=== PATIENT | male | born 1945 | race Caucasian/White ===

== ENCOUNTER 2018-08-30 17:36 | Inpatient (IN) | payer MEDICARE, OTHER ==
[~2018-08-30] VITALS: Ht 177.8 cm; Wt 119.3 kg
[~2018-08-30 17:36] MED LIST: ALLOPURINOL 10100 M1 PO; ALLOPURINOL 30300 M2 PO; BACTRIM 400-801 EACH PO; BENAZEPRIL-HCT1 EA10 PO; BENAZEPRIL-HCT1 EAC2 PO; CELEBREX 200 M200 M1 PO; CIPRO250 M1 PO; CIPRO500 MG PO; COLACE100 MG PO; D3-5050000 UNIT PO; ELIQUIS2.5 MG PO; FINASTERIDE5 MG PO; FLOMAX0.4 MG PO; GLUCOPHAGE500 MG PO; HYDROCODONE-AP1 EAC6 PO; LEVSIN-SL0.125 MG SUBLING; LEVSIN0.125 MG PO; LIPITOR10 MG PO; METFORMIN HCL500 MG PO; NEURONTIN 300300 M1 PO; NORCO 5-325 TA1 EACH PO; OXYCODONE HCL 55 MG PO; PERCOCET 5-3251 EACH PO; PERCOCET 7.5-31 EACH PO; PERCOCET PO; PIOGLITAZONE15 MG PO; POTASSIUM CITR PO; PROLIA60 MG/1 ML PO; SENOKOT-S1 TA1 PO; TESTOSTERO200 MG/1 M IM; UROCIT-K10 ME1 PO; ZOFRAN 4 MG ORAL4 M1 DIS; ZOFRAN ODT4 MG PO
[2018-08-30 17:59] VITALS: BP 143/72
[2018-08-30] MEDS ORDERED: ZALEPLON 10 MG10 M1 PO (18:06)
[2018-08-30 18:28] LABS: ABSOLUTE BASOPHILS 0.1 thou/uL (0.0-0.2); ABSOLUTE EOSINOPHILS 0.1 thou/uL (0.0-0.7); ABSOLUTE LYMPHOCYTES 1.1 thou/uL (0.8-5.3); ABSOLUTE MONOCYTES 0.5 thou/uL (0.0-1.2); ABSOLUTE NEUTROPHILS 3.9 thou/uL (1.6-8.1); BASOPHILS 1.1 %; HEMATOCRIT 41.6 % (42.0-52.0); HEMOGLOBIN 13.8 gm/dL (14.0-18.0); LYMPHOCYTES 20.1 %; MCH 26.5 pg (26.0-34.0); MCHC 33.1 g/dL (28.0-37.0); MONOCYTES 8.3 %; NUCLEATED RBCS 0 /100WBC; PLATELET COUNT* 202 thou/uL (150-400); POLYS 69.5 %; RDW-CV 16.9 % (10.5-14.5); WBC 5.6 thou/uL (4.0-11.0)
[2018-08-30 18:45] LABS: CALCIUM 9.6 mg/dL (8.5-10.1); POTASSIUM 3.8 mmol/L (3.5-5.1)
[2018-08-30 18:50] LABS: ALBUMIN 3.8 g/dL (3.4-5.0); TOTAL BILIRUBIN 0.5 mg/dL (<0.1-1.0); TOTAL PROTEIN 7.4 g/dL (6.4-8.2)
[2018-08-30 20:16] VITALS: BP 148/77
[2018-08-30 21:00] VITALS: BP 126/60
--- NOTE | 2018-08-30 23:17 | NUR ---
PT ADMITTED TO ROOM 110 AT 2100 FOR BILATERAL CELLULITIS OF LOWER EXTREMITIES. PT HAD TOTAL RIGHT KNEE REPLACEMENT IN JUNE 2018. PT REPORTS BEING TREATED FOR CELLULITIS AFTER THAT SURGURY WAS DONE. PT WAS TOLD BY PROVIDER TO PRESENT TO HOSPITAL TODAY DUE TO INCREASED REDNESS AND SWELLING. PT DEPORTS TIGHTNESS AND DISCOMFORT BUT DENIES NEED FOR PAIN MEDICINE. IV VANCOMYCIN INFUSING UPON ARRIVAL. PT DUE TO RECIEVE ZOSYN Q 8HRS IV. CALL LIGHT IN REACH, PT DEMONSTRATES PROPER USE.
[2018-08-31 05:00] VITALS: BP 131/66
--- NOTE | 2018-08-31 06:53 | NUR ---
NO CHANGE IN CONDITION DURING NIGHT. PT CONINUES TO RECIEVE SCHEDULED IV ANTIBIOTICS FOR CELLULITIS OF LOWER EXTREMITIES. NO COMPLAINTS OF PAIN OR DISCOMFORT. VITAL SIGNS WITHIN NORMAL LIMITS.
[2018-08-31 08:00] VITALS: BP 139/75
[2018-08-31 16:00] VITALS: BP 142/68
--- NOTE | 2018-08-31 19:55 | NUR ---
VSS-AFEBRILE. PAIN WELL CONTROLLED WITH PO PAIN MEDICATION. ELEVATED RIGHT LOWER EXTREMITY ON PILLOWS FOR COMFORT. TOLERATING MEALS AND FLUIDS WITH NO REPORTED N/V. REFUSES INSULIN, PREFERS TO JUST TAKE METFORMIN. CALLS APPROPRIATELY FOR ASSISTANCE.
[2018-08-31 20:30] VITALS: BP 159/65
[2018-09-01 00:16] VITALS: BP 127/61
[2018-09-01 04:28] VITALS: BP 135/63
[2018-09-01 05:03] LABS: HEMOGLOBIN 12.9 gm/dL (14.0-18.0); MCH 26.1 pg (26.0-34.0); MCHC 32.3 g/dL (28.0-37.0); MPV 9.1 fl. (7.2-11.1); RBC 4.94 mil/uL (4.50-6.00); WBC 4.5 thou/uL (4.0-11.0)
[2018-09-01 05:30] LABS: CREATININE 0.9 mg/dL (0.6-1.3); MAGNESIUM 2.1 mg/dL (1.8-2.4); POTASSIUM 4.2 mmol/L (3.5-5.1)
--- NOTE | 2018-09-01 06:26 | NUR ---
Alert and oriented x 4. Up independently to the bathroom, voiding adequately. He denies pain. Blood sugar was within normal limits last evening. His IV is saline locked and he's getting IV antibiotics. He has slept intermittenly.
[2018-09-01 07:45] VITALS: BP 143/70
[2018-09-01 17:39] VITALS: BP 148/72
--- NOTE | 2018-09-01 18:07 | NUR ---
PATIENT ALERT AND ORIENTED X 4. VITAL SIGNS STABLE ON ROOM AIR. AFEBRILE. UP AD SHREE IN ROOM AND AMBULATING IN HALLWAY. IV PATENT AND SALINE LOCKED. ANTIBIOTICS GIVEN IV SCHEDULED. DENIES PAIN AND NAUSEA. HOURLY ROUNDS MAINTAINED THROUGHOUT THE SHIFT. CALL LIGHT WITHIN REACH. NURSING WLL CONTINUE TO MONITOR.
[2018-09-01 20:00] VITALS: BP 155/74
[2018-09-02 00:23] VITALS: BP 128/58
[2018-09-02 04:00] VITALS: BP 103/57
[2018-09-02 04:04] LABS: HEMATOCRIT 38.9 % (42.0-52.0); HEMOGLOBIN 12.5 gm/dL (14.0-18.0); MCH 26.2 pg (26.0-34.0); MCHC 32.1 g/dL (28.0-37.0); MCV 81.5 fL (80.0-100.0); MPV 8.7 fl. (7.2-11.1); RBC 4.77 mil/uL (4.50-6.00); RDW-CV 17.2 % (10.5-14.5); WBC 5.5 thou/uL (4.0-11.0)
[2018-09-02 04:15] LABS: CALCIUM 8.8 mg/dL (8.5-10.1); CREATININE 0.9 mg/dL (0.6-1.3); POTASSIUM 4.1 mmol/L (3.5-5.1)
--- NOTE | 2018-09-02 05:58 | NUR ---
Alert and oriented x 4. Up in room independently. RLE redness and edema looks better. He has slept better.
[2018-09-02 08:00] VITALS: BP 153/71
[2018-09-02] MEDS ORDERED: KEFLEX500 M1 PO (09:54)
[2018-09-02 10:02] VITALS: BP 153/71
[2018-09-02 10:40] VITALS: BP 153/71
--- NOTE | 2018-09-02 11:17 | NUR ---
PT ALERT AND ORIENTED X 4. LEGS ELEVATED. EDEMA BILAT WITH REDNESS AND ABRASIONS ON RLE. PT DENIED ANY PAIN THIS MORNING. UP AD SHREE. PT PROVIDED WITH DISCHARGE INSTRUCTIONS AND PRESCRIPTION. IV REMOVED. PT LEFT UNIT WITH PERSONAL BELONGINGS WITH NURSING STAFF TO LEAVE WITH SPOUSE BY PRIVATE CAR @ 3008.
== END 2018-09-02 10:40 | disposition home or self-care (01) | DRG 603 ==
LOC: M.ERS 17:36 → M.ORTHSURG 18:20 → M.TBA-ER 18:20 → M.ORTHSURG 22:21
PROVIDERS: Emergency Medicine; Internal Medicine; ADMIT Internal Medicine
DX: L03.115 Cellulitis of right lower limb (principal); I87.8 Other specified disorders of veins; E11.22 Type 2 diabetes mellitus with diabetic chronic kidney disease; I12.9 Hypertensive chronic kidney disease with stage 1 through stage 4 chronic kidney disease, or unspecified chronic kidney disease; N18.3 Chronic kidney disease, stage 3 (moderate); Z96.653 Presence of artificial knee joint, bilateral; Z85.46 Personal history of malignant neoplasm of prostate; Z92.3 Personal history of irradiation; Z87.442 Personal history of urinary calculi; Z79.01 Long term (current) use of anticoagulants; Z79.899 Other long term (current) drug therapy; Z91.012 Allergy to eggs; Z91.011 Allergy to milk products

== ENCOUNTER → 2019-02-11 | Outpatient (CLI) | payer MEDICARE, OTHER ==
[~2019-02-11] MED LIST changes: +ASPIR 8181 MG PO; +KEFLEX500 M1 PO; +MEDROLDOSEPACK PO; +ZALEPLON 10 MG10 M1 PO
== END ==
LOC: M.RAD 09:48
DX: C50.922 Malignant neoplasm of unspecified site of left male breast (principal); Z90.12 Acquired absence of left breast and nipple

== ENCOUNTER → 2019-06-09 | Outpatient (CLI) | payer MEDICARE, OTHER ==
[2019-06-09 13:29] LABS: CALCIUM 9.8 mg/dL (8.5-10.1); POTASSIUM 3.9 mmol/L (3.5-5.1)
--- NOTE | 2019-06-10 08:44 | EKG ---
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: : 1945 Requested By: Physician staff Order Number: [id number] Tomas MD: Zachary Phillips Measurements Intervals [place] Rate: 54 P: 41 UT: 168 QRS: -46 QRSD: 122 T: -1 QT: 411 QTc: 390 Interpretive Statements Sinus rhythm Left axis deviation Compared to ECG 07/25/2017 12:55:57 Ventricular premature complex(es) no longer present Incomplete right bundle-branch block no longer present Electronically Signed On 06-10-2019 8:43:59 CDT by Zachary Phillips [email or web address] <ELECTRONICALLY SIGNED> By: Zachary Phillips MD, [facility] 06/10/19 [id number] Zachary Phillips MD, FAC /EPI
== END ==
LOC: M.LAB 12:46
DX: Z01.818 Encounter for other preprocedural examination (principal)